=== PATIENT | male | born 1970 | race Caucasian/White ===

== ENCOUNTER → 2016-07-25 | Outpatient (CLI) | payer BC | LOC: LAB 11:55 | PROVIDERS: ATTEND Family Medicine | DX: Z20.828 Contact with and (suspected) exposure to other viral communicable diseases (principal) | CPT/HCPCS: 87804 ==

== ENCOUNTER → 2016-08-04 | Outpatient (CLI) | payer BC ==
[2016-08-04 11:50] LABS: BASOPHILS # (AUTO) 0.03 10*3/UL; BASOPHILS % (AUTO) 0.5 % (0-1); EOSINOPHILS % (AUTO) 0.8 % (0-8); HEMOGLOBIN 14.7 g/dL (14.0-18.0); IMM GRAN % (AUTO) 0.9 % (0-5); IMM GRAN# (AUTO) 0.06 10*3/UL; LYMPHOCYTES # (AUTO) 1.99 10*3/uL; LYMPHOCYTES % (AUTO) 31.1 % (10-50); MEAN CORPUSCULAR HEMOGLOBIN 30.2 PG (27-31); MEAN CORPUSCULAR HGB CONC 34.2 g/dL (33-37); MEAN PLATELET VOLUME 9.3 FL (7.4-12.2); MONOCYTES # (AUTO) 0.67 10*3/UL (0.3-0.8); MONOCYTES % (AUTO) 10.5 % (5-15); NEUTROPHILS % (AUTO) 56.2 % (50-80); RDW COEFFICIENT OF VARIATION 13.6 % (11.5-14.5); RED BLOOD COUNT 4.86 10^6/uL (4.70-6.10)
[2016-08-04 11:52] LABS: PLATELET MORPHOLOGY COMMENT NORMAL MORPHOLOGY (NORM)
[2016-08-04 12:09] LABS: ASPARTATE AMINO TRANSFERASE 28 IU/L (21-57); BILIRUBIN,TOTAL 0.5 mg/dL (0.3-1.2); BLOOD UREA NITROGEN 16 mg/dL (7-22); CALCIUM 9.1 mg/dL (8.7-10.7); CHLORIDE 109 meq/L (98-112); CREATININE 0.8 mg/dL (0.70-1.50); EST GLOMERULAR FILTRATION > 60 (>60 ml/min/1.73m(2)); GLUCOSE 110 mg/dL (78-110); POTASSIUM 4.1 meq/L (3.8-5.2); SODIUM 141 meq/L (135-145); TOTAL PROTEIN 6.8 g/dL (6.1-8.0)
[2016-08-04 12:14] LABS: AMYLASE 35 U/L (30-110)
--- NOTE | 2016-08-04 12:36 | DI ---
XR CXR 2VW PA/LAT,08/04/2016 11:38 AM: Clinical History: Cough Previous Exam: None at this facility. Findings: PA and lateral views of the chest are obtained, and demonstrate clear lungs. The cardiomediastinum an d bony thorax are unremarkable. Impression: Normal chest.
== END ==
LOC: RAD 11:33
PROVIDERS: ATTEND Family Medicine
DX: R05 Cough (principal); E78.5 Hyperlipidemia, unspecified; K21.9 Gastro-esophageal reflux disease without esophagitis; K85.90 Acute pancreatitis without necrosis or infection, unspecified; E55.9 Vitamin D deficiency, unspecified
CPT/HCPCS: 36415; 71020; 80053; 82150; 82306; 83690; 84443; 85025

== ENCOUNTER → 2016-10-15 | Outpatient (CLI) | payer BC ==
[2016-10-15 17:01] LABS: BLOOD UREA NITROGEN 17 mg/dL (7-22); EST GLOMERULAR FILTRATION > 60 (>60 ml/min/1.73m(2)); SERUM ALBUMIN 3.9 g/dL (3.5-4.8)
[2016-10-15 17:10] LABS: LIPASE 136 IU/L (23-300)
== END ==
LOC: LAB 16:26
PROVIDERS: ATTEND Family Medicine
DX: K85.90 Acute pancreatitis without necrosis or infection, unspecified (principal); E55.9 Vitamin D deficiency, unspecified
CPT/HCPCS: 36415; 80053; 82150; 82306; 83690

== ENCOUNTER 2019-04-11 12:49 | Observation (INO) ==
[2019-04-11] MEDS: Lactated Ringers 1,000 ML PRIMARY IV SCH ×2 (12:30→18:33)
[~2019-04-11 12:49] MED LIST: LIDOCAINE W/ SODIUM BICARB 0.5 ML SYR ONE; LIDOCAINE W/ SODIUM BICARB 0.5 ML SYR SUBD PRN; Lactated Ringers 1,000 ML PRIMARY IV ONE
[2019-04-11] MEDS ORDERED: MIDAZOLAM 5 MG/1 ML ONE (13:16)
[2019-04-11] MEDS ORDERED: fentaNYL Inj 250 MCG/5 ML VIAL ONE (13:16)
[2019-04-11] MEDS ORDERED: PROPOFOL 10 MG/1 ML (200 MG/20 ML) VIAL IV ONE (13:17)
[2019-04-11] MEDS ORDERED: LIDOCAINE MPF 2% - 5 ML (20 MG/1 ML) ONE (13:17)
[2019-04-11] MEDS ORDERED: LIDOCAINE HCL 1%/EPI 1:100,000 - 20 ML VIAL ONE (13:34)
[2019-04-11] MEDS ORDERED: OXYMETAZOLINE 0.05% 15 ML NASAL SPRAY ONE (13:34)
[2019-04-11] MEDS ORDERED: Bacitracin Oint 14.2 gm tube 14 APPLIC/14.2 GM TUBE TOPICAL ONE (13:36)
[2019-04-11] MEDS ORDERED: HYDROcodone-APAP 5 MG -325 MG TABLET PO PRN (13:47)
[2019-04-11] MEDS ORDERED: DIAZEPAM 10 MG/2 ML (5 MG/1 ML) CARPUJECT IVP PRN (13:49)
[2019-04-11] MEDS ORDERED: ceFAZolin 1 GM VIAL ONE (14:16)
[2019-04-11] MEDS ORDERED: ceFAZolin Inj 2 GM in Sodium Chloride 0.9% 100 ML IV ONE (14:21)
[2019-04-11] MEDS ORDERED: ONDANSETRON 4 MG/2 ML VIAL IVP PRN ×2 (15:12→15:47)
[2019-04-11] MEDS ORDERED: LIDOCAINE W/ SODIUM BICARB 0.5 ML SYR SUBD PRN (15:12)
[2019-04-11] MEDS ORDERED: HYDROmorphone 2 MG/1 ML ONE (15:14)
[2019-04-11] MEDS: HYDROmorphone 2 MG/1 ML IVP PRN ×2 (15:15→15:22)
[2019-04-11] MEDS ORDERED: ALBUTEROL SULFATE 8.5 GM HFA INHALER INH PRN (15:47)
[2019-04-11] MEDS ORDERED: ALPRAZolam Tab 1 MG TABLET PO PRN (15:47)
[2019-04-11] MEDS ORDERED: ALBUTEROL SULFATE 2.5 MG/3 ML NEB PRN (16:25)
[2019-04-11] MEDS: HYDROcodone-APAP 7.5 MG-325 MG TABLET PO PRN ×2 (16:32→20:48)
[2019-04-11] MEDS: D5-1/2NS 1,000 ML PRIMARY IV SCH (16:34)
[2019-04-11] MEDS ORDERED: OMEPRAZOLE 20 MG CAPSULE PO SCH (21:00)
[2019-04-11] MEDS ORDERED: Montelukast Tab 10 MG TAB PO SCH (21:00)
[2019-04-11] MEDS ORDERED: FENOFIBRATE NANOCRYSTALLIZED 48 MG PO SCH (21:00)
[2019-04-11] MEDS: CEPHALEXIN 500 MG PO SCH (21:00)
[2019-04-12] MEDS: HYDROcodone-APAP 7.5 MG-325 MG TABLET PO PRN ×2 (00:33→04:42)
[2019-04-12 05:14] VITALS: BP 131/86; RESP 16; TEMP 97.2; O2SAT 93
[2019-04-12] MEDS: D5-1/2NS 1,000 ML PRIMARY IV SCH (06:09)
[2019-04-12] MEDS ORDERED: Influenza 19-20 Vaccine (6mo+) 60 MCG/0.5 ML SYRINGE IM ONE (08:50)
[2019-04-12] MEDS ORDERED: CITALOPRAM 20 MG TABLET PO SCH (09:00)
[2019-04-12] MEDS: CEPHALEXIN 500 MG PO SCH (09:16)
== END 2019-04-12 10:39 | disposition home or self-care (01) ==
LOC: OR 12:49 → MED/SURG 12:49 → OPS 12:50
PROVIDERS: ADMIT Otolaryngology; ATTEND Otolaryngology